=== PATIENT | male | born 1980 | race Two or more races ===

== ENCOUNTER 2016-04-03 12:37 | Emergency (ER) | payer BC ==
[~2016-04-03] VITALS: Ht 182.9 cm; Wt 122.5 kg
[2016-04-03 12:43] VITALS: BP 129/91
[2016-04-03] MEDS ORDERED: HYDROCODONE/APAP 10/325MG 1 EA TABLET PO ONE (13:30)
== END 2016-04-03 13:39 | disposition home or self-care (01) ==
LOC: ER 12:42
DX: M25.561 Pain in right knee (principal); M19.90 Unspecified osteoarthritis, unspecified site
CPT/HCPCS: 99283; A4606; Z7610